=== PATIENT | male | born 1960 | race Caucasian/White ===

== ENCOUNTER → 2019-05-01 06:39 | Outpatient (CLI) | payer OTHER, SELFPAY ==
[2019-05-01 09:07] LABS: Alanine Aminotransferase 24 IU/L (21-72); Albumin 4.2 g/dL (3.5-5.0); Albumin Globulin Ratio 1.4 (1.0-2.8); Alkaline Phosphatase 63 U/L (38-126); Aspartate Aminotransferase 26 IU/L (17-59); Bilirubin Total 0.5 mg/dL (0.2-1.3); Blood Urea Nitrogen 14 mg/dL (9-20); Calcium 9.5 mg/dL (8.4-10.2); Carbon Dioxide 30 mmol/L (22-32); Chloride 103 mmol/L (98-107); Cholesterol 184 mg/dL (140-199); Estimated Glomerular Filt Rate > 60.0 mL/min (>60); Globulin 3.1 g/dL (1.7-4.1); Glucose 101 mg/dL (80-110); HDL Cholesterol 46 mg/dL (40-60); HEMOLYSIS < 15 (0-50); LDL Cholesterol Calculated 87 mg/dL (<100); Potassium 4.4 mmol/L (3.4-5.1); Sodium 141 mmol/L (137-145); Total Protein 7.3 g/dL (6.3-8.2); Triglycerides 255 mg/dL (35-150); Uric Acid 5.9 mg/dL (3.5-8.5)
[2019-05-01 09:18] LABS: Add Manual Diff / Slide Review NO; Basophils Absolute Auto 100 /uL (0-100); Basophils Percent Auto 0.7 % (0-2); Eosinophils Absolute Auto 300 /uL (0-450); Eosinophils Percent Auto 4.5 % (2-4); Hematocrit 43.9 % (41-53); Hemoglobin 14.9 g/dL (13.5-17.5); Lymphocytes Absolute Auto 2100 /uL (1100-4500); Lymphocytes Percent Auto 29.1 % (25-40); Mean Corpuscular Hemoglobin 32.3 PG (26-34); Monocytes Absolute Auto 500 /uL (0-900); Monocytes Percent Auto 6.8 % (3-14); Neutrophils Absolute Auto 4300 /uL (1500-7000); Neutrophils Percent Auto 58.9 % (50-75); Platelet Count 227 X10^3/uL (150-400); Red Blood Cell Count 4.62 X10^6/uL (4.5-5.9); Red Cell Distribution Width 13.6 % (11.6-14.8); White Blood Cell Count 7.4 X10^3/uL (4.5-11.0)
[2019-05-01 09:22] LABS: Free T4, Direct Thyroxine 0.58 ng/dL (0.78-2.19); Vitamin D 25 Hydroxy (D3) 33.7 ng/mL (30.0-100.0)
[2019-05-01 09:36] LABS: Prostate Specific Antigen Scrn 1.72 ng/mL (0.1-4.0); Thyroid Stimulating Hormone 3.58 uIU/mL (0.47-4.68)
[2019-05-04 16:38] LABS: Valproic Acid (Depakene) Total 52.2 mg/L (50.0-100.0)
== END ==
PROVIDERS: Nurse Practitioner Psychiatric/Mental Health; Family Provider Family Medicine; PCP Family Medicine; Visit Provider Physician Assistant Medical
DX: E78.5 Hyperlipidemia, unspecified (principal); K21.9 Gastro-esophageal reflux disease without esophagitis; E79.0 Hyperuricemia without signs of inflammatory arthritis and tophaceous disease; F32.9 Major depressive disorder, single episode, unspecified; Z12.5 Encounter for screening for malignant neoplasm of prostate; Z51.81 Encounter for therapeutic drug level monitoring
CPT/HCPCS: 36415; 80053; 80061; 80164; 82306; 84439; 84443; 84550; 85025; G0103

== ENCOUNTER → 2020-09-08 11:30 | Outpatient (CLI) | payer OTHER, SELFPAY ==
[2020-09-08 12:52] LABS: Add Manual Diff / Slide Review NO; Basophils Absolute Auto 0 /uL (0-100); Basophils Percent Auto 0.5 % (0-2); Eosinophils Absolute Auto 200 /uL (0-450); Eosinophils Percent Auto 2.5 % (2-4); Hematocrit 41.1 % (41-53); Hemoglobin 14.1 g/dL (13.5-17.5); Lymphocytes Absolute Auto 2800 /uL (1100-4500); Lymphocytes Percent Auto 35.6 % (25-40); Mean Corpuscular HGB Conc 34.3 % (30-36); Mean Corpuscular Hemoglobin 32.5 PG (26-34); Mean Corpuscular Volume 94.8 fL (80-100); Monocytes Absolute Auto 400 /uL (0-900); Neutrophils Absolute Auto 4500 /uL (1500-7000); Neutrophils Percent Auto 56.4 % (50-75); Platelet Count 239 X10^3/uL (150-400); Red Blood Cell Count 4.34 X10^6/uL (4.5-5.9); Red Cell Distribution Width 14.2 % (11.6-14.8); White Blood Cell Count 7.9 X10^3/uL (4.5-11.0)
[2020-09-08 13:45] LABS: Alanine Aminotransferase 19 IU/L (<50); Albumin 4.2 g/dL (3.5-5.0); Albumin Globulin Ratio 1.5 (1.0-2.8); Alkaline Phosphatase 71 U/L (38-126); Aspartate Aminotransferase 26 IU/L (17-59); BUN Creatinine Ratio 14.7 (6-22); Bilirubin Total 0.5 mg/dL (0.2-1.3); Blood Urea Nitrogen 14 mg/dL (9-20); Calcium 9.5 mg/dL (8.4-10.2); Carbon Dioxide 29 mmol/L (22-32); Chloride 102 mmol/L (98-107); Cholesterol 150 mg/dL (140-199); Estimated Glomerular Filt Rate > 60.0 mL/min (>60); Globulin 2.8 g/dL (1.7-4.1); Glucose 91 mg/dL (80-110); HDL Cholesterol 43 mg/dL (40-60); HEMOLYSIS < 15 (0-50); LDL Cholesterol Calculated 82 mg/dL (<100); Potassium 4.3 mmol/L (3.4-5.1); Sodium 137 mmol/L (137-145); Triglycerides 125 mg/dL (35-150)
== END ==
PROVIDERS: Family Provider Family Medicine; PCP Internal Medicine; Referring Provider Internal Medicine; Visit Provider Internal Medicine
DX: M10.00 Idiopathic gout, unspecified site (principal); E78.2 Mixed hyperlipidemia; F32.9 Major depressive disorder, single episode, unspecified; R10.32 Left lower quadrant pain
CPT/HCPCS: 36415; 80053; 80061; 84550; 85025

== ENCOUNTER → 2020-09-14 08:54 | Outpatient (CLI) | payer OTHER, SELFPAY ==
--- NOTE | 2020-09-14 09:37 | DI.CT.S_ITS ---
PROCEDURE: CT ABDOMEN PELVIS W CON INDICATIONS: Left lower quadrant pain TECHNIQUE: After the administration of oral and intravenous contrast, 5 mm thick sections acquired from the diaphragms to the symphysis. 5 mm thick coronal and sagittal reformats were performed. For radiation dose reduction, the following was used: automated exposure control, adjustment of mA and/or kV according to patient size. COMPARISON: None. FINDINGS: Image quality: Excellent. ABDOMEN: Lung bases: Scattered subsegmental atelectasis and/or scarring. No focal consolidation. 2 mm left basilar pulmonary nodule on image 8/2 indeterminate. Heart size is normal. Hepatic steatosis. Subcentimeter hepatic foci are statistically cysts or hemangiomas, although technically too small to characterize accurately and therefore nonspecific. The gallbladder is grossly unremarkable.. Biliary system is non-dilated. Pancreas enhances normally. Spleen is normal in size and enhancement. No adrenal nodules. Kidneys are normal in size and enhancement, without hydronephrosis. Peritoneum and bowel: Stomach, small bowel, and colon loops are normal in caliber and wall thickness. No free fluid or air. Normal appendix. Moderate stool Nodes and vessels: No retroperitoneal or mesenteric adenopathy. Aorta and inferior vena cava are normal in caliber. Scattered vascular calcifications seen in the aorta. Miscellaneous: No ventral hernias. PELVIS: Genitourinary: Bladder wall thickness is normal. Small bilateral fat containing inguinal hernias. Bones: No vertebral body compression fracture. Spondylytic changes and facet arthropathy. IMPRESSION: Overall, no acute abnormality identified. Nonspecific 2 mm left basilar pulmonary nodule which could be followed up with a CT chest in 1 year to exclude early malignant or metastatic possibilities Small bilateral fat containing inguinal hernias Dictated by: Luis E Mcintosh M.D. on 09/14/2020 at 14:38 Approved by: Luis E Mcintosh M.D. on 09/14/2020 at 14:45
== END ==
PROVIDERS: Family Provider Family Medicine; PCP Internal Medicine; Referring Provider Internal Medicine; Visit Provider Internal Medicine
DX: R10.32 Left lower quadrant pain (principal); R91.1 Solitary pulmonary nodule; K76.0 Fatty (change of) liver, not elsewhere classified; K40.20 Bilateral inguinal hernia, without obstruction or gangrene, not specified as recurrent
CPT/HCPCS: 74177; Q9967

== ENCOUNTER → 2020-11-12 09:45 | Outpatient (CLI) | payer OTHER, SELFPAY ==
[2020-11-12 10:25] LABS: COVID19 -Nasal RAPID Negative (Negative)
== END ==
PROVIDERS: Family Provider Family Medicine; PCP Internal Medicine; Visit Provider Surgery
DX: Z01.812 Encounter for preprocedural laboratory examination (principal); Z20.822 Contact with and (suspected) exposure to COVID-19
CPT/HCPCS: 87635; C9803

== ENCOUNTER 2020-11-13 09:27 | Day surgery (SDC) | payer OTHER, SELFPAY ==
[2020-11-13] VITALS (7 sets, daily range): BP systolic 102–142; BP diastolic 67–83; PULSE 60–70; RESP 16–20; TEMP 36.1–37.6; O2SAT 94–98; BMI 28.8
--- NOTE | 2020-11-13 | PATH_ITS ---
[facility] Accession Number: [id number] . 01 Material submitted: . colon - 40 CM COLON POLYP . 01 Clinical history: . A: POLYP X2 SCREENING COLONOSCOPY . 02 Diagnosis: Colon, Polyp x2, 40 cm, Biopsies: Hyperplastic polyps. MRV 11/18/2020 1402 Local . 02 Electronically signed: . Celi Mayer MD, Pathologist NPI- [id number] . 01 Gross description: . 40 CM COLON POLYP: Received in formalin are 2 fragment(s) of roberts, soft tissue measuring 0.2 x 0.2 x 0.2 cm to 0.3 x 0.3 x 0.3 cm submitted entirely in 1 cassette(s) /LUIS 11/16/2020 1729 Local . 02 Pathologist provided ICD-10: K63.5 . 02 CPT . 142061 Performed at: 01 [facility] [address], [place], [place] [id number] MD Jose L Thakkar MD Phone: [phone] Performed at: 02 [facility] [address] [place], [place] [id number] MD Celi Mayer MD Phone: [phone]
[2020-11-13] MEDS: SODIUM CHLORIDE 0.9% 1,000 ML 200 ML IV (10:14)
--- NOTE | 2020-11-13 12:32 | PM.HP.1 ---
History of Present Illness History of Present Illness Date Patient Seen: 11/13/20 Time Patient Seen: 12:33 Chief complaint: SCREENING COLONOSCOPY Narrative: This is a 60-year-old man with history of colonoscopy 2 years ago, were 7 polyps were found. He was told to have repeat colonoscopy in 2 years. Do not have the records for that procedure, but the patient confirms this history. He denies any symptoms of melena, hematochezia, unexplained weight loss. He does have some left-sided abdominal pain which has not been explained by CT scans. ROS: Thirteen system review is otherwise negative other than as mentioned below and in HPI. PE: GENERAL: Well groomed and cooperative. Appears stated age. Answers questions promptly and appropriately. Vital signs noted. HENT: Normocephalic, atraumatic. Hearing intact. EYES: Conjunctiva pink, sclera white, no periorbital swelling. CARDIOVASCULAR: Regular rate. No pedal edema. RESPIRATORY: Non-tachypneic, breathing comfortably on room air. GASTROINTESTINAL: Abdomen soft and non-distended GENITALURINARY: No flank tenderness. MUSCULOSKELETAL: Equal tone and mass bilaterally. SKIN: Warm, dry, soft, appropriate color for ethnicity. No other lesions, rashes, or wounds. NEURO: Alert and Oriented X 3. No gross sensory deficits, or cognitive issues. PSYCH: Appropriate affect and mood. Patient History Family & Social History Social History: household members spouse Tobacco & Substance use: Smoking Status Never smoker alcohol intake never Substance Use Type marijuana Meds Home Medications and Allergies Home Medications Medication Instructions Recorded Confirmed Type simvastatin [Zocor] 5 mg PO HS #0 10/02/12 11/13/20 History allopurinol 300 mg tablet 300 mg PO DAILY 90 Days #90 tab 03/19/18 11/13/20 History omeprazole 20 mg capsule,delayed 20 mg PO DAILY 90 Days #90 cap 03/19/18 11/13/20 History release sertraline 100 mg tablet 200 mg PO DAILY #60 tab 10/26/20 11/13/20 Rx sodium,potassium,mag sulfates 17.5 177 ml PO DAILY #354 ml 11/09/20 Rx gram-3.13 gram-1.6 gram oral soln divalproex [Depakote ER] 1,000 mg PO DAILY 11/13/20 11/13/20 History Allergies Allergy/AdvReac Type Severity Reaction Status Date / Time No Known Drug Allergies Allergy Verified 11/13/20 09:57 Exam Vital Signs (past 8 hours): - 11/13/20 10:06 Temperature 97.0 F L Pulse Rate 69 Respiratory Rate 16 Blood Pressure 142/83 H Pulse Oximetry 98 Oxygen Delivery Method Room Air Assessment & Plan Assessment and plan (1) Personal history of colonic polyps: Status: Acute Assessment & Plan narrative: Risks and benefits of screening colonoscopy and possible polypectomy were discussed with the patient including risk of bleeding, perforation, need for additional procedures, risks of anesthesia. The patient desires to proceed with the colonoscopy procedure. COVID-19 COVID-19 status: Negative Result date/Date tested (Pos, Neg/Pending): 11/12/20 Time Spent With Patient Time with patient: 15-24 minutes Quality VTE Deep Vein Thrombosis/Pulmonary Embolism Present on Admission: No
[2020-11-13] MEDS: MIDAZOLAM 5 MG/5 ML VIAL IV (12:36)
[2020-11-13] MEDS: fentaNYL 250 MCG/5 ML INJ IV (12:36)
--- NOTE | 2020-11-13 12:54 | P.OP.ENDO_ITS ---
Operative Date/Time/Diagnoses Date of procedure: 11/13/20 Time of procedure: 12:55 Pre-op diagnosis: personal history of colon polyps, here for surveillance colonoscopy Post-op diagnosis: other (two small polyps) Procedure & Clinicians Study performed: Colonoscopy Procedural sedation performed by the endoscopy Polypectomy x2 using Jumbo forceps Same procedure as scheduled: Yes Indications: Personal history of colon polyps, due for surveillance colonoscopy Surgeon: Kailee Horton Procedure Notes SCOAP/Timeout: Performed Procedure in detail: The patient was brought to the room and placed in left lateral decubitus position with all bony prominences padded. A time-out was performed and then the patient was given procedural sedation starting with 4 mg of Versed and 100 mcg of fentanyl. Vitals were monitored throughout the procedure and remained stable. Once adequately sedated, the procedure was begun. A rectal exam was performed revealing no abnormalities. The colonoscope was then introduced to the rectum and advanced to the cecum in the usual fashion. The cecum was identified by the appendiceal orifice, the mucosal tri- fold, and the ileocecal valve. The scope was then retracted while rotating side to side and examining each mucosal fold. Two small polyps were found at 40 cm in the colon and removed completely with Jumbo forceps. At the conclusion of the procedure retroflexion was performed and small grade 1-2 internal hemorrhoids without stigmata of bleeding were seen. The scope was then withdrawn from the rectum the procedure was concluded. The patient tolerated the procedure well and was transferred to the PACU in stable condition. Scope withdrawal time: 10 Sedation minutes: 18 Findings: polyp (2 small polyps) Specimen(s): other (Polyps) Complications: none Impression: two small benign-appearing polyps. Post-procedure Recommendations: Colonscopy in 5 years (So long as polyp pathology is non neoplastic) Follow up: as needed Disposition: PACU
--- NOTE | 2020-11-13 14:04 | SUR.PHASEII ---
Patient tolerating snack and beverage without difficulty. Awaiting arrival of spouse for discharge. VSS. Denies pain or nausea. All belongings returned to patient.
== END 2020-11-13 14:42 | disposition home or self-care (01) ==
PROVIDERS: Family Provider Family Medicine; PCP Internal Medicine; Referring Provider Surgery; Visit Provider Surgery
PROC: 0DJD8ZZ Inspection of Lower Intestinal Tract, Via Natural or Artificial Opening Endoscopic (ICD-10-PCS; CPT 45378; principal; 2020-11-13 10:45)
DX: Z12.11 Encounter for screening for malignant neoplasm of colon (principal); Z86.010 Personal history of colon polyps; K64.0 First degree hemorrhoids; K63.5 Polyp of colon
CPT/HCPCS: 45380; 99152; J2250; J3010

== ENCOUNTER 2023-06-07 13:01 | Emergency (ER) | payer OTHER, SELFPAY ==
[2023-06-07] VITALS (13 sets, daily range): BP systolic 130–169; BP diastolic 73–101; PULSE 53–80; RESP 12–21; TEMP 36.8; O2SAT 94–98; BMI 28.1
--- NOTE | 2023-06-07 13:07 | DI.RAD.S_ITS ---
PROCEDURE: XR CHEST 1V INDICATIONS: chest pain TECHNIQUE: One view of the chest was acquired. COMPARISON: None. FINDINGS: Surgical changes and devices: None. Lungs and pleura: Lungs are clear. No pleural effusions or pneumothorax. Mediastinum: Mediastinal contours appear normal. Heart size is normal. Bones and chest wall: No suspicious bony lesions. Overlying soft tissues appear unremarkable. IMPRESSION: No acute cardiopulmonary pathology. Dictated by: Jayce Allen M.D. on 06/07/2023 at 13:23 Approved by: Jayce Allen M.D. on 06/07/2023 at 13:24
--- NOTE | 2023-06-07 13:17 | ED_ITS ---
HPI - Chest Pain <Alcira Perry MD - Last Filed: 06/07/23 16:29> General Chief Complaint: Chest Pain Stated Complaint: CHEST PAIN Time Seen by Provider: 06/07/23 13:08 Source: patient Mode of arrival: Ambulatory Limitations: no limitations History of Present Illness HPI narrative: 62-year-old male with history of gout, hyperlipidemia presents by private vehicle for approximately 1 month of left-sided chest pain, shortness of breath, lightheadedness. Symptoms have been ongoing for several weeks but slightly worse today. He called his primary care doctor's triage line who referred him to the emergency department. 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 Patient states that his shortness of breath has become very bothersome and it will occasionally wake him up in the middle of the night. Chest pain seems to come and go intermittently without cause, however it seems to worsen after he *stops* working. No known immediate family hx of heart disease Related Data Home Medications Medication Instructions Recorded Confirmed simvastatin 5 mg tablet (Zocor) 5 mg PO HS ##0 10/02/12 04/22/21 Previous Rx's Medication Instructions Recorded sodium,potassium,mag sulfates 17.5 177 ml PO DAILY 2 doses #354 mL 11/09/20 gram-3.13 gram-1.6 gram oral soln divalproex 500 mg tablet,extended 2,000 mg PO BEDTIME 90 days #360 04/22/21 release 24 hr (Depakote ER) tabs melatonin 3 mg capsule 3 mg PO BEDTIME PRN sleep #90 caps 04/22/21 sertraline 100 mg tablet (Zoloft) 200 mg PO DAILY #180 tabs 04/22/21 allopurinol 300 mg tablet 300 mg PO DAILY 90 days #90 tabs 06/23/21 omeprazole 20 mg capsule,delayed 20 mg PO DAILY 90 days #90 caps 10/08/21 release Allergies Allergy/AdvReac Type Severity Reaction Status Date / Time No Known Drug Allergies Allergy Verified 06/07/23 13:07 Review of Systems <Alcira Perry MD - Last Filed: 06/07/23 16:29> Review of Systems Narrative: CONSTITUTIONAL- Denies: fever, chills, fatigue HEENT- Denies: sore throat, nosebleed, vision changes RESPIRATORY- Reports: shortness of breath Denies: cough, wheezing CARDIAC-reports: Chest pain, nocturnal dyspnea Denies: edema, orthopnea GI- Denies: abdominal pain, nausea, vomiting, constipation, diarrhea - Denies: frequency, dysuria, hematuria, flank pain MSK- Denies: extremity pain, extremity swelling, joint pain, joint swelling SKIN- Denies: rash, itching, burn, swelling NEUROLOGICAL- Reports: lightheadedness Denies: headache, numbness, weakness, dizziness PSYCHIATRIC- Denies: anxiety, depression, suicidal ideation, homicidal ideation Patient History <Alcira Perry MD - Last Filed: 06/07/23 16:29> Medical History Bipolar disorder HLD (hyperlipidemia) Family History Brother Aortic dissection Social History household members: spouse Smoking Status: Never smoker alcohol intake: current (rare/occasional) substance use type: marijuana (daily) Smoking Status: Never smoker alcohol intake frequency: a few times a week Substance Use Type: marijuana Exam <Alcira Perry MD - Last Filed: 06/07/23 16:29> Initial Vital Signs Initial Vital Signs: Vital Signs Temperature 98.2 F 06/07/23 13:02 Pulse Rate 80 06/07/23 13:02 Respiratory Rate 14 06/07/23 13:02 Blood Pressure 166/101 H 06/07/23 13:02 Pulse Oximetry 96 06/07/23 13:02 Oxygen Delivery Method Room Air 06/07/23 13:02 Const: Awake, alert, no acute distress, nontoxic appearing Eyes: PERRL, EOMI, conjunctiva normal ENT: Atraumatic, dentition normal, mucous membranes moist Cardiac: regular rate, regular rhythm RESP: unlabored, clear bilaterally, no wheezing GI: Atraumatic, soft, nontender, nondistended, no rebound, no guarding MSK: Atraumatic, full range of motion, pulses equal Skin: Warm, Dry, intact, no rashes Neuro: AO x3, CN II-XII grossly intact, moves all extremities Psych: affect normal, mood normal, not suicidal, not homicidal <Sukhwinder Danielle MD - Last Filed: 06/07/23 17:54> Initial Vital Signs Initial Vital Signs: Vital Signs Temperature 98.2 F 06/07/23 13:02 Pulse Rate 80 06/07/23 13:02 Respiratory Rate 14 06/07/23 13:02 Blood Pressure 166/101 H 06/07/23 13:02 Pulse Oximetry 96 06/07/23 13:02 Oxygen Delivery Method Room Air 06/07/23 13:02 Scores <Alcira Perry MD - Last Filed: 06/07/23 16:29> HEART Score Heart Score history: Moderately Suspicious Heart Score EKG: Normal Heart Score Age: 45-64 years old Heart Score risk factors: 1-2 risk factors Heart Score troponin: < or = to normal limit Heart Score Total: 3 <Sukhwinder Danielle MD - Last Filed: 06/07/23 17:54> HEART Score Heart Score Total: 3 Course <Alcira Perry MD - Last Filed: 06/07/23 16:29> Course Course Narrative: Well-appearing patient with 1 month of symptoms. Vital signs are reviewed, mild hypertension but no other abnormalities. EKG is normal sinus rhythm without ischemia. Orders Ordered: ED Orders 06/07/23 13:07 XR chest 1V Stat 06/07/23 13:10 EKG-12 Lead Stat 06/07/23 13:11 Complete Blood Count AUTO DIFF Stat Comprehensive Metabolic Panel Stat Lipase Stat Magnesium Stat PTT Partial Thromboplastin Zenon Stat Prothrombin Time INR Stat Troponin & CK Cardiac Panel Stat 06/07/23 13:47 CT angio chest Stat Discontinued Medications Aspirin (Aspirin 81 Mg Chew Tab) 324 mg PO NOW ONE Stop: 06/07/23 13:08 Last Admin: 06/07/23 13:51 Dose: 324 mg Documented By: ALTON Reevaluation(s) Reevaluation #1: Laboratory work and imaging is unremarkable. Due to patient's age and the duration of the chest pain call placed to cardiology. Cardiology recommends admission for stress test and echo, no need to transfer at this time. Patient in agreement with admission. Consultations Consultation #1: Dr. Kothari (cardiology) - recommended keeping in hospital for stress test/echo Vital Signs Vital signs: Vital Signs - 8 hr 06/07/23 13:02 06/07/23 13:05 06/07/23 13:05 Temperature 98.2 F Pulse Rate 80 79 Respiratory Rate 14 Blood Pressure 166/101 H 166/101 H Pulse Oximetry 96 96 Oxygen Delivery Method Room Air 06/07/23 13:30 06/07/23 13:30 06/07/23 14:00 Temperature Pulse Rate 64 62 Respiratory Rate 13 15 Blood Pressure 149/89 H Pulse Oximetry 97 94 Oxygen Delivery Method 06/07/23 14:30 06/07/23 14:31 06/07/23 14:31 Temperature Pulse Rate 57 L 58 L Respiratory Rate 13 13 Blood Pressure 169/87 H Pulse Oximetry 96 96 Oxygen Delivery Method 06/07/23 15:00 06/07/23 15:00 06/07/23 15:29 Temperature Pulse Rate 56 L 60 Respiratory Rate 17 13 Blood Pressure 150/83 H Pulse Oximetry 97 95 Oxygen Delivery Method 06/07/23 15:29 06/07/23 15:30 06/07/23 15:30 Temperature Pulse Rate 57 L Respiratory Rate 14 Blood Pressure 163/81 H 164/89 H Pulse Oximetry 98 Oxygen Delivery Method 06/07/23 16:00 06/07/23 16:00 06/07/23 16:30 Temperature Pulse Rate 58 L Respiratory Rate 12 Blood Pressure 168/91 H 149/88 H Pulse Oximetry 98 Oxygen Delivery Method 06/07/23 16:30 06/07/23 17:00 06/07/23 17:00 Temperature Pulse Rate 56 L 53 L Respiratory Rate 21 17 Blood Pressure 130/73 Pulse Oximetry 96 95 Oxygen Delivery Method 06/07/23 17:30 06/07/23 17:30 Temperature Pulse Rate 54 L Respiratory Rate 12 Blood Pressure 136/80 Pulse Oximetry 97 Oxygen Delivery Method <Sukhwinder Danielle MD - Last Filed: 06/07/23 17:54> Course Course Narrative: Well-appearing patient with 1 month of symptoms. Vital signs are reviewed, mild hypertension but no other abnormalities. EKG is normal sinus rhythm without ischemia. The patient has mild, recurrent chest pain. He was sent here from the cardiology office, by Dr. Kothari while. ER evaluation was by Dr. Perry. I assumed care at the end of Dr. Perry's shift. Heart score was 2-3. Dr. Hans hamilton recommended admission and stress test. Dr. Perry consulted with hospitalist, Dr. Thurman. Dr. Thurman offered the patient admission or discharge with outpatient follow-up. The patient has opted to go home. Patient is currently asymptomatic. I advised him to continue his current medications. He should contact cardiology tomorrow to arrange follow-up. If symptoms escalate he should call [email or web address]. Rj PARRA Orders Ordered: ED Orders 06/07/23 13:07 XR chest 1V Stat 06/07/23 13:10 EKG-12 Lead Stat 06/07/23 13:11 Complete Blood Count AUTO DIFF Stat Comprehensive Metabolic Panel Stat Lipase Stat Magnesium Stat PTT Partial Thromboplastin Zenon Stat Prothrombin Time INR Stat Troponin & CK Cardiac Panel Stat 06/07/23 13:47 CT angio chest Stat Discontinued Medications Aspirin (Aspirin 81 Mg Chew Tab) 324 mg PO NOW ONE Stop: 06/07/23 13:08 Last Admin: 06/07/23 13:51 Dose: 324 mg Documented By: ALTON Vital Signs Vital signs: Vital Signs - 8 hr 06/07/23 13:02 06/07/23 13:05 06/07/23 13:05 Temperature 98.2 F Pulse Rate 80 79 Respiratory Rate 14 Blood Pressure 166/101 H 166/101 H Pulse Oximetry 96 96 Oxygen Delivery Method Room Air 06/07/23 13:30 06/07/23 13:30 06/07/23 14:00 Temperature Pulse Rate 64 62 Respiratory Rate 13 15 Blood Pressure 149/89 H Pulse Oximetry 97 94 Oxygen Delivery Method 06/07/23 14:30 06/07/23 14:31 06/07/23 14:31 Temperature Pulse Rate 57 L 58 L Respiratory Rate 13 13 Blood Pressure 169/87 H Pulse Oximetry 96 96 Oxygen Delivery Method 06/07/23 15:00 06/07/23 15:00 06/07/23 15:29 Temperature Pulse Rate 56 L 60 Respiratory Rate 17 13 Blood Pressure 150/83 H Pulse Oximetry 97 95 Oxygen Delivery Method 06/07/23 15:29 06/07/23 15:30 06/07/23 15:30 Temperature Pulse Rate 57 L Respiratory Rate 14 Blood Pressure 163/81 H 164/89 H Pulse Oximetry 98 Oxygen Delivery Method 06/07/23 16:00 06/07/23 16:00 06/07/23 16:30 Temperature Pulse Rate 58 L Respiratory Rate 12 Blood Pressure 168/91 H 149/88 H Pulse Oximetry 98 Oxygen Delivery Method 06/07/23 16:30 06/07/23 17:00 06/07/23 17:00 Temperature Pulse Rate 56 L 53 L Respiratory Rate 21 17 Blood Pressure 130/73 Pulse Oximetry 96 95 Oxygen Delivery Method 06/07/23 17:30 06/07/23 17:30 Temperature Pulse Rate 54 L Respiratory Rate 12 Blood Pressure 136/80 Pulse Oximetry 97 Oxygen Delivery Method MDM - Chest Pain <Alcira Perry MD - Last Filed: 06/07/23 16:29> Differential Diagnosis Differential diagnosis: Likely fracture of rib, stable angina, unstable angina pectoris and atypical chest pain Lab Data 06/07/23 13:11 06/07/23 13:11 Labs: Lab Results 06/07/23 06/07/23 06/07/23 Range/Units 13:11 13:11 13:11 WBC 9.1 (4.5-11.0) X10^3/uL RBC 4.44 L (4.5-5.9) X10^6/uL Hgb 14.6 (13.5-17.5) g/dL Hct 42.3 (41-53) % MCV 95.3 (80-100) fL MCH 32.8 (26-34) PG MCHC 34.4 (30-36) % RDW 13.9 (11.6-14.8) % Plt Count 239 (150-400) X10^3/uL Neut % (Auto) 61.3 (50-75) % Lymph % (Auto) 31.6 (25-40) % Mcdowell % (Auto) 5.5 (3-14) % Eos % (Auto) 0.9 L (2-4) % Baso % (Auto) 0.7 (0-2) % Neut # (Auto) 5600 (2751-4038) /uL Lymph # (Auto) 2900 (4017-1922) /uL Mcdowell # (Auto) 500 (0-900) /uL Eos # (Auto) 100 (0-450) /uL Baso # (Auto) 100 (0-100) /uL PT 12.0 (10.1-12.7) SECONDS INR 1.0 (0.9-1.3) APTT 28 (26-36) SECONDS Sodium 137 (137-145) mmol/L Potassium 3.9 (3.4-5.1) mmol/L Chloride 105 (98-107) mmol/L Carbon Dioxide 27 (22-32) mmol/L BUN 17 (9-20) mg/dL Creatinine 0.94 (0.66-1.25) mg/dL Estimated GFR > 60 (>60) mL/min BUN/Creatinine Ratio 18.1 (6-22) Glucose 122 H (80-110) mg/dL Calcium 9.3 (8.4-10.2) mg/dL Magnesium 2.0 (1.6-2.3) mg/dL Total Bilirubin 0.4 (0.2-1.3) mg/dL AST 24 (17-59) IU/L ALT 22 (<50) IU/L Alkaline Phosphatase 53 (38-126) U/L Total Creatine Kinase 149 (55-170) U/L Troponin I < 0.012 (0.01-0.034) ng/mL Total Protein 7.4 (6.3-8.2) g/dL Albumin 4.2 (3.5-5.0) g/dL Globulin 3.2 (1.7-4.1) g/dL Albumin/Globulin Ratio 1.3 (1.0-2.8) Lipase 142 (23-300) U/L Urine Dip Bedside Urine Glucose Negative Bedside Urine Bilirubin - Negative Bedside Urine Ketone - Negative Urine Specific [place] 1.005 Bedside Urine Occult Blood - Negative Bedside Urine pH 6.0 Bedside Urine Protein - Negative Bedside Urine Urobilinogen - Negative Bedside Urine Nitrite - Negative Bedside Urine Leukocytes - Negative Esterase ECG Data Interpretation: Normal sinus rhythm, regular rate 77 beats per minute, normal VA, normal QRS, no STEMI. <Sukhwinder Danielle MD - Last Filed: 06/07/23 17:54> Lab Data Labs: Lab Results 06/07/23 06/07/23 06/07/23 Range/Units 13:11 13:11 13:11 WBC 9.1 (4.5-11.0) X10^3/uL RBC 4.44 L (4.5-5.9) X10^6/uL Hgb 14.6 (13.5-17.5) g/dL Hct 42.3 (41-53) % MCV 95.3 (80-100) fL MCH 32.8 (26-34) PG MCHC 34.4 (30-36) % RDW 13.9 (11.6-14.8) % Plt Count 239 (150-400) X10^3/uL Neut % (Auto) 61.3 (50-75) % Lymph % (Auto) 31.6 (25-40) % Mcdowell % (Auto) 5.5 (3-14) % Eos % (Auto) 0.9 L (2-4) % Baso % (Auto) 0.7 (0-2) % Neut # (Auto) 5600 (8700-5915) /uL Lymph # (Auto) 2900 (7661-3633) /uL Mcdowell # (Auto) 500 (0-900) /uL Eos # (Auto) 100 (0-450) /uL Baso # (Auto) 100 (0-100) /uL PT 12.0 (10.1-12.7) SECONDS INR 1.0 (0.9-1.3) APTT 28 (26-36) SECONDS Sodium 137 (137-145) mmol/L Potassium 3.9 (3.4-5.1) mmol/L Chloride 105 (98-107) mmol/L Carbon Dioxide 27 (22-32) mmol/L BUN 17 (9-20) mg/dL Creatinine 0.94 (0.66-1.25) mg/dL Estimated GFR > 60 (>60) mL/min BUN/Creatinine Ratio 18.1 (6-22) Glucose 122 H (80-110) mg/dL Calcium 9.3 (8.4-10.2) mg/dL Magnesium 2.0 (1.6-2.3) mg/dL Total Bilirubin 0.4 (0.2-1.3) mg/dL AST 24 (17-59) IU/L ALT 22 (<50) IU/L Alkaline Phosphatase 53 (38-126) U/L Total Creatine Kinase 149 (55-170) U/L Troponin I < 0.012 (0.01-0.034) ng/mL Total Protein 7.4 (6.3-8.2) g/dL Albumin 4.2 (3.5-5.0) g/dL Globulin 3.2 (1.7-4.1) g/dL Albumin/Globulin Ratio 1.3 (1.0-2.8) Lipase 142 (23-300) U/L Urine Dip Bedside Urine Glucose Negative Bedside Urine Bilirubin - Negative Bedside Urine Ketone - Negative Urine Specific [place] 1.005 Bedside Urine Occult Blood - Negative Bedside Urine pH 6.0 Bedside Urine Protein - Negative Bedside Urine Urobilinogen - Negative Bedside Urine Nitrite - Negative Bedside Urine Leukocytes - Negative Esterase Discharge Plan Departure Patient Disposition: Home Clinical Impression: Chest pain, Dyspnea Instructions: DI for Chest Pain Activity Restrictions/Additional Instructions: Continue current medications. Follow-up with your PCM, or cardiology, Dr. Kothari. An outpatient stress test should be ordered. If symptoms escalate, you should call 911. Prescriptions: No Action divalproex [Depakote ER] 500 mg tablet extended release 24 hr 2,000 mg PO BEDTIME 90 Days Qty: 360 3RF sertraline [Zoloft] 100 mg tablet 200 mg PO DAILY Qty: 180 3RF melatonin 3 mg capsule 3 mg PO BEDTIME PRN (Reason: sleep) Qty: 90 0RF simvastatin [Zocor] 5 MG tablet 5 mg PO HS Qty: 0 Hold Instructions: not currently taking sodium,potassium,mag sulfates 17.5-3.13-1.6 gram recon soln 177 ml PO DAILY Qty: 354 0RF Rx Instructions: Please take medication per [facility] written instructions. allopurinol 300 mg tablet 300 mg PO DAILY 90 Days Qty: 90 0RF omeprazole 20 mg capsule,delayed release(DR/EC) 20 mg PO DAILY 90 Days Qty: 90 0RF Referrals: Elliott Carbone MD [Primary Care Provider] - Stand Alone Forms: Patient Portal/API
[2023-06-07 13:19] LABS: Add Manual Diff / Slide Review NO; Basophils Absolute Auto 100 /uL (0-100); Basophils Percent Auto 0.7 % (0-2); Eosinophils Absolute Auto 100 /uL (0-450); Eosinophils Percent Auto 0.9 % (2-4); Hematocrit 42.3 % (41-53); Hemoglobin 14.6 g/dL (13.5-17.5); Lymphocytes Absolute Auto 2900 /uL (1100-4500); Lymphocytes Percent Auto 31.6 % (25-40); Mean Corpuscular HGB Conc 34.4 % (30-36); Mean Corpuscular Hemoglobin 32.8 PG (26-34); Mean Corpuscular Volume 95.3 fL (80-100); Monocytes Absolute Auto 500 /uL (0-900); Monocytes Percent Auto 5.5 % (3-14); Neutrophils Absolute Auto 5600 /uL (1500-7000); Neutrophils Percent Auto 61.3 % (50-75); Platelet Count 239 X10^3/uL (150-400); Red Blood Cell Count 4.44 X10^6/uL (4.5-5.9); Red Cell Distribution Width 13.9 % (11.6-14.8); White Blood Cell Count 9.1 X10^3/uL (4.5-11.0)
[2023-06-07 13:36] LABS: PTT Partial Thromboplastin Tim 28 SECONDS (26-36)
[2023-06-07 13:38] LABS: Alanine Aminotransferase 22 IU/L (<50); Albumin 4.2 g/dL (3.5-5.0); Albumin Globulin Ratio 1.3 (1.0-2.8); Alkaline Phosphatase 53 U/L (38-126); Aspartate Aminotransferase 24 IU/L (17-59); BUN Creatinine Ratio 18.1 (6-22); Bilirubin Total 0.4 mg/dL (0.2-1.3); Blood Urea Nitrogen 17 mg/dL (9-20); Calcium 9.3 mg/dL (8.4-10.2); Carbon Dioxide 27 mmol/L (22-32); Chloride 105 mmol/L (98-107); Creatine Kinase 149 U/L (55-170); Estimated Glomerular Filt Rate > 60 mL/min (>60); Globulin 3.2 g/dL (1.7-4.1); Glucose 122 mg/dL (80-110); HEMOLYSIS < 15 (0-50); Lipase 142 U/L (23-300); Potassium 3.9 mmol/L (3.4-5.1); Sodium 137 mmol/L (137-145); Total Protein 7.4 g/dL (6.3-8.2)
--- NOTE | 2023-06-07 13:47 | DI.CT.S_ITS ---
PROCEDURE: CT ANGIO CHEST INDICATIONS: SEVERE DYSPNEA TECHNIQUE: After the administration of intravenous contrast, 2 mm thick sections acquired from the pulmonary apices to the posterior costophrenic angles. 3-dimensional maximum intensity projection (MIP) coronal and sagittal reformats were then acquired through the thorax. For radiation dose reduction, the following was used: automated exposure control, adjustment of mA and/or kV according to patient size. COMPARISON: [facility], CR, XR CHEST 1V, 06/07/2023, 13:04. FINDINGS: Image quality: Excellent. Pulmonary arteries: Pulmonary arteries are normal in size, and demonstrate no intraluminal filling defects to suggest central pulmonary embolism. Lungs and pleura: Lungs are clear. No pleural effusions or pneumothorax. Central and peripheral airways are patent. Mediastinum: Heart size is normal, without pericardial effusion. No mediastinal or hilar adenopathy. Thoracic aorta is normal in caliber and enhancement. Esophagus is normal in caliber, without hiatal hernia. Bones and chest wall: No suspicious bony lesions. Ribs and thoracic spine appear intact throughout. Thyroid gland is unremarkable. No axillary or supraclavicular adenopathy. Abdomen: Simple hepatic cyst is present. Otherwise, visualized upper abdominal solid organs appear normal in the early arterial phase of enhancement. IMPRESSION: Lungs are clear. No pulmonary embolism. Dictated by: Odette Woodson M.D. on 06/07/2023 at 15:41 Approved by: Odette Woodson M.D. on 06/07/2023 at 15:42
[2023-06-07 13:49] LABS: Troponin I < 0.012 ng/mL (0.01-0.034)
[2023-06-07] MEDS: ASPIRIN 81 MG CHEW TAB 324 MG PO (13:51)
--- NOTE | 2023-06-07 17:21 | P.CONS_ITS ---
History of Present Illness Consult details Date Patient Seen: 06/07/23 Time Patient Seen: 17:21 Chief complaint: CHEST PAIN Reason for consult: chest pain Requesting provider: Alcira Perry Narrative: This is a 62 year old male with PMH of HLD and Bipolar disorder who presented to the the ER today with chest pain. He states the pain has been ongoing for at least the past year. He used to see cardiology and had two previous unremarkable stress tests in the past. He describes the pain as a constant pressure, and is all the time at a low level. He has intermittent sharp pains with mild dyspnea, heart pounding palpitations (but not fast HR), and dizziness. He actually notices it less at work and with exertion. He has noticed it more recently and relates this to an upcoming court case with his neighbor later this week and has had a lot of stress related to this recently. He has not seen anyone for this recently. He denies orthopnea, dyspnea on exertion, PND, or lower extremity edema. He does not smoke cigarettes but uses marijuana daily. He has rare alcohol intake. In the emergency room he was mildly hypertensive. The remainder of his vitals were unremarkable. Initial EKG showed NSR without ST abnormalities. Laboratory evaluation was unremarkable including negative troponin. He had a chest x-ray which showed no acute abnormalities and a CT angiogram which showed no PE or aortic pathology (patient concerned given brother with history of aortic dissection). ER discussed with cardiology whom recommended stress testing. His HEART score is a 2 based on my evaluation. I discussed the risks and benefits of admission for stress testing or discharge home with the patient with plan to follow up with PCP for further evaluation, and patient opted for discharge home from the ER and outpatient follow up with primary care. Meds Home Medications and Allergies Home Medications Medication Instructions Recorded Confirmed Type simvastatin 5 mg tablet (Zocor) 5 mg PO HS ##0 10/02/12 04/22/21 History sodium,potassium,mag sulfates 17.5 177 ml PO DAILY 2 doses #354 mL 11/09/20 04/22/21 Rx gram-3.13 gram-1.6 gram oral soln divalproex 500 mg tablet,extended 2,000 mg PO BEDTIME 90 days #360 04/22/21 04/22/21 Rx release 24 hr (Depakote ER) tabs melatonin 3 mg capsule 3 mg PO BEDTIME PRN sleep #90 caps 04/22/21 04/22/21 Rx sertraline 100 mg tablet (Zoloft) 200 mg PO DAILY #180 tabs 04/22/21 04/22/21 Rx allopurinol 300 mg tablet 300 mg PO DAILY 90 days #90 tabs 06/23/21 Rx omeprazole 20 mg capsule,delayed 20 mg PO DAILY 90 days #90 caps 10/08/21 Rx release Allergies Allergy/AdvReac Type Severity Reaction Status Date / Time No Known Drug Allergies Allergy Verified 06/07/23 13:07 Review of Systems Review of Systems Narrative: All other systems reviewed with the patient and are negative unless otherwise stated. Exam Vital Signs (past 8 hours): - 06/07/23 13:02 Temperature 98.2 F Pulse Rate 80 Respiratory Rate 14 Blood Pressure 166/101 H Pulse Oximetry 96 Oxygen Delivery Method Room Air Oxygen Delivery Method Room Air Narrative Exam Narrative: Gen: well developed well nourished in NAD CV: RRR no m/r/g Pulm: CTA b/l Ext; No edema, no cyanosis or clubbing. Objective ECG Impression: NSR without ischemic changes as interpreted by me. Labs 06/07/23 13:11 06/07/23 13:11 Labs: Laboratory Results - last 24 hr 06/07/23 06/07/23 06/07/23 13:11 13:11 13:11 WBC 9.1 RBC 4.44 L Hgb 14.6 Hct 42.3 MCV 95.3 MCH 32.8 MCHC 34.4 RDW 13.9 Plt Count 239 Neut % (Auto) 61.3 Lymph % (Auto) 31.6 [place] % (Auto) 5.5 Eos % (Auto) 0.9 L Baso % (Auto) 0.7 Neut # (Auto) 5600 Lymph # (Auto) 2900 [place] # (Auto) 500 Eos # (Auto) 100 Baso # (Auto) 100 PT 12.0 INR 1.0 APTT 28 Sodium 137 Potassium 3.9 Chloride 105 Carbon Dioxide 27 BUN 17 Creatinine 0.94 Estimated GFR > 60 BUN/Creatinine Ratio 18.1 Glucose 122 H Calcium 9.3 Magnesium 2.0 Total Bilirubin 0.4 AST 24 ALT 22 Alkaline Phosphatase 53 Total Creatine Kinase 149 Troponin I < 0.012 Total Protein 7.4 Albumin 4.2 Globulin 3.2 Albumin/Globulin Ratio 1.3 Lipase 142 PFSH Medical History Bipolar disorder HLD (hyperlipidemia) Family History Brother Aortic dissection Social History household members: spouse Tobacco & Substance Use Smoking Status: Never smoker alcohol intake: current (rare/occasional) substance use type: marijuana (daily) Assessment & Plan Assessment & Plan narrative: This is a 62 year old male with PMH of HLD and Bipolar disorder who presented to the the ER today with chest pain. He states the pain has been ongoing for at least the past year. ER discussed with cardiology whom recommended stress testing. His HEART score is a 2 based on my evaluation. I discussed the risks and benefits of admission for stress testing or discharge home with the patient with plan to follow up with PCP for further evaluation, and patient opted for discharge home from the ER and outpatient follow up with primary care after that discussion. At that time I recommend further consideration for stress testing as an outpatient, along with continued evaluation for anxiety management though it appears siutational related to his recent stressful events at home. With regards to his BP, I recommend lifestyle interventions for now and continued monitoring with primary care given complexities above. diagnoses: 1. Chest pain, suspect secondary to stress and anxiety 2. history of bipolar disorder, unspecified 3. History of HLD 4. Elevated BP without a diagnosis of HTN. Code: full Dispo: discharge from ER Additional history obtained via discussion with ER provider. I have reviewed patient's relevant labs, imaging, EKG and documentation. Discussed plan of care with patient and bedside RN and Er provider. I have utilized all available immediate resources to obtain, update, or review the patient's current medications.
== END 2023-06-07 18:00 | disposition home or self-care (01) ==
PROVIDERS: Emergency Provider Emergency Medicine; Family Provider Family Medicine; PCP Internal Medicine
DX: R07.9 Chest pain, unspecified (principal); I10 Essential (primary) hypertension; R06.00 Dyspnea, unspecified
CPT/HCPCS: 71045; 71275; 80053; 81003; 82550; 83690; 83735; 84484; 85025; 85610; 85730; 93005; 93010; 99284; Q9967

== ENCOUNTER → 2024-11-27 15:39 | Outpatient (CLI) | payer MEDICARE, OTHER, SELFPAY ==
--- NOTE | 2024-11-27 15:45 | DI.RAD.S_ITS ---
PROCEDURE: XR KNEE LT 3V INDICATIONS: KNEE PAIN TECHNIQUE: 3 views of the knee were acquired. COMPARISON: None. FINDINGS AND IMPRESSION: Mild osteophytic lipping and joint space narrowing. Mild patellar enthesopathy. No acute displaced fracture or dislocation. Small nonacute appearing bone fragment adjacent to the lateral patellar facet on sunrise view. Small joint effusion. If there is high concern for further derangement, consider MRI evaluation. Dictated by: Efrain Pastor M.D. on 11/28/2024 at 10:44 Approved by: Efrain Pastor M.D. on 11/28/2024 at 10:45
--- NOTE | 2024-11-27 15:46 | DI.RAD.S_ITS ---
PROCEDURE: XR KNEE RT 3V INDICATIONS: KNEE PAIN TECHNIQUE: 3 views of the knee were acquired. COMPARISON: None. FINDINGS AND IMPRESSION: Mild osteophytic lipping of the tibial spines, and joint space narrowing in the medial compartment. No acute displaced fracture or dislocation. Small joint effusion. If there is high concern for further derangement, consider MRI evaluation. Dictated by: Efrain Pastor M.D. on 11/28/2024 at 10:44 Approved by: Efrain Pastor M.D. on 11/28/2024 at 10:44
== END ==
PROVIDERS: Family Provider Family Medicine; PCP Family Medicine; Referring Provider Family Medicine; Visit Provider Family Medicine
DX: M25.561 Pain in right knee (principal); M25.562 Pain in left knee; M25.462 Effusion, left knee; M25.461 Effusion, right knee; G89.29 Other chronic pain
CPT/HCPCS: 73562